=== PATIENT | male | born 1945 | race Caucasian/White ===

== ENCOUNTER 2018-08-07 23:16 | Observation (INO) | payer MEDICARE ==
[~2018-08-07] VITALS: Ht 177.8 cm; Wt 74.7 kg
[~2018-08-07 23:16] MED LIST: ASPI81CH PO; Accuneb1.25 MG/3 INH; Dorzolamide-Tim10 ML BOTHEYES; Ferrous Sulfat325 MG PO; GABA400 PO; LEVSOD75 PO; LIDOCAINE1 EACH TOP; Mobic15 MG PO; Mucinex600 MG PO; NITR.4SL SL; Omeprazole20 M1 PO; THERA-D2000 UNIT PO; Travatan Z5 ML BOTHEYES
[2018-08-08 00:04] LABS: BASOPHILS ABSOLUTE AUTO 0.03 K/mm3 (0.00-0.23); BASOPHILS PERCENT AUTO 0 % (0-2); EOSINOPHILS ABSOLUTE AUTO 0.38 K/mm3 (0.00-0.68); EOSINOPHILS PERCENT AUTO 4 % (0-6); Hematocrit 44.5 % (37.0-53.0); Hemoglobin 14.3 g/dL (13.5-17.5); IMMATURE GRAN ABSOLUTE AUTO 0.02 K/mm3 (0.00-0.10); IMMATURE GRAN PERCENT AUTO 0 % (0-1); LYMPHOCYTES ABSOLUTE AUTO 0.79 K/mm3 (0.84-5.20); LYMPHOCYTES PERCENT AUTO 9 % (21-46); MONOCYTES ABSOLUTE AUTO 0.55 K/mm3 (0.16-1.47); MONOCYTES PERCENT AUTO 6 % (4-13); Mean Corpuscular HGB 29.5 pg (26.0-34.0); Mean Corpuscular HGB Conc 32.1 g/dL (31.5-36.5); Mean Corpuscular Volume 92 fL (80-100); Mean Platelet Volume 10.2 fL (9.1-12.4); NEUTROPHILS ABSOLUTE AUTO 6.94 K/mm3 (1.96-9.15); NEUTROPHILS PERCENT AUTO 80 % (41-73); Platelet Count 209 K/mm3 (150-400); RDW Coefficient Variation 14.4 % (11.7-14.2); RDW Standard Deviation 49.4 fL (35.1-46.3); Red Blood Cell Count 4.84 M/mm3 (4.30-5.90); White Blood Cell Count 8.71 K/mm3 (4.00-11.30)
[2018-08-08 00:05] LABS: Base Excess Venous -0.7 mmol/L; Bicarbonate Venous 23.3 mmol/L (24.0-30.0); PO2 Venous 62.5 mmHg (38-42); pH Blood Venous 7.34 (7.34-7.37)
[2018-08-08 00:05] LABS: Calcium, Ionized (POC) 1.08 mmol/L (1.10-1.46); Chloride (POC) 103 mmol/L (98-108); Creatinine (POC) 0.9 mg/dL (0.8-1.3); Glucose (ISTAT POC) 118 mg/dL (70-99); Hemoglobin (POC) 15.3 g/dL (13.5-17.5); Potassium (POC) 3.5 mmol/L (3.5-5.5); Sodium (POC) 141 mmol/L (135-148); Total CO2 (POC) 24 mmol/L (21-32)
[2018-08-08 00:25] LABS: Alanine Aminotransfer (ALT/SGP 20 U/L (12-78); Albumin, Blood 3.4 g/dL (3.4-5.0); Albumin/Globulin Ratio 0.8 (0.8-1.8); Alk Phos 94 U/L (50-136); Anion Gap 8 mmol/L (6-16); Aspartate Aminotrans (AST/SGOT 19 U/L (12-37); Bilirubin, Total 0.9 mg/dL (0.1-1.0); Blood Urea Nitrogen 16 mg/dL (8-24); Bun/Creatinine Ratio 16.8 (12.0-20.0); CO2, Blood 26 mmol/L (21-32); Calcium, Blood 7.9 mg/dL (8.5-10.1); Chloride, Blood 107 mmol/L (98-108); Creatinine, Blood 0.95 mg/dL (0.60-1.20); Glomerular Filtration Rate >60 (60-); Glucose, Blood 113 mg/dL (70-99); Potassium, Blood 3.6 mmol/L (3.5-5.5); Sodium, Blood 141 mmol/L (136-145); Total Protein, Blood 7.4 g/dL (6.4-8.2); Troponin I <0.015 ng/mL (0.000-0.040)
[2018-08-08] MEDS ORDERED: SENN187 PO (01:23)
[2018-08-08] MEDS ORDERED: TRAM50 PO (01:24)
== END 2018-08-08 15:12 | disposition home or self-care (01) ==
LOC: ER 23:16 → SURS 23:17 → MEDS 08-08 02:06
PROVIDERS: Emergency Medicine
DX: T17.900A Unspecified foreign body in respiratory tract, part unspecified causing asphyxiation, initial encounter (principal); K21.9 Gastro-esophageal reflux disease without esophagitis; J45.909 Unspecified asthma, uncomplicated; E03.9 Hypothyroidism, unspecified; Z88.8 Allergy status to other drugs, medicaments and biological substances; Z88.5 Allergy status to narcotic agent; Z91.041 Radiographic dye allergy status; Z79.899 Other long term (current) drug therapy; Z87.891 Personal history of nicotine dependence
CPT/HCPCS: 71046; 80047; 80053; 82803; 84484; 85014; 85025; 90686; 92610; 93005; 93010; 94640; 94644; 94760; 96374; 99285-25; G8996; G8997; G8998; J1650; J2930

== ENCOUNTER 2019-06-02 05:04 | Inpatient (IN) | payer OTHER, MEDICARE ==
[~2019-06-02] VITALS: Ht 177.8 cm; Wt 74.4 kg
[~2019-06-02 05:04] MED LIST changes: +ONDA4ODT MM; +Protonix40 MG PO; +SENN187 PO; +TRAM50 PO
[2019-06-02 05:41] LABS: BASOPHILS ABSOLUTE AUTO 0.01 K/mm3 (0.00-0.23); BASOPHILS PERCENT AUTO 0 % (0-2); EOSINOPHILS PERCENT AUTO 0 % (0-6); Hematocrit 35.1 % (37.0-53.0); IMMATURE GRAN ABSOLUTE AUTO 0.08 K/mm3 (0.00-0.10); IMMATURE GRAN PERCENT AUTO 1 % (0-1); LYMPHOCYTES PERCENT AUTO 3 % (21-46); MONOCYTES ABSOLUTE AUTO 0.59 K/mm3 (0.16-1.47); MONOCYTES PERCENT AUTO 4 % (4-13); Mean Corpuscular HGB 28.2 pg (26.0-34.0); Mean Corpuscular HGB Conc 31.3 g/dL (31.5-36.5); Mean Corpuscular Volume 90 fL (80-100); Mean Platelet Volume 10.3 fL (9.1-12.4); NEUTROPHILS ABSOLUTE AUTO 13.86 K/mm3 (1.96-9.15); NEUTROPHILS PERCENT AUTO 93 % (41-73); Platelet Count 224 K/mm3 (150-400); RDW Coefficient Variation 15.8 % (11.7-14.2); RDW Standard Deviation 51.6 fL (35.1-46.3); White Blood Cell Count 14.94 K/mm3 (4.00-11.30)
[2019-06-02 05:55] LABS: Prothrombin Time Results 10.6 Sec (9.7-11.5)
[2019-06-02 06:01] LABS: Alanine Aminotransfer (ALT/SGP 21 U/L (12-78); Albumin, Blood 3.4 g/dL (3.4-5.0); Albumin/Globulin Ratio 0.9 (0.8-1.8); Alk Phos 88 U/L (50-136); Anion Gap 7 mmol/L (6-16); Aspartate Aminotrans (AST/SGOT 13 U/L (12-37); Bilirubin, Total 1.1 mg/dL (0.1-1.0); Blood Urea Nitrogen 43 mg/dL (8-24); Bun/Creatinine Ratio 51.6 (12.0-20.0); CO2, Blood 27 mmol/L (21-32); Calcium, Blood 8.3 mg/dL (8.5-10.1); Chloride, Blood 105 mmol/L (98-108); Creatinine, Blood 0.83 mg/dL (0.60-1.20); Globulin, Blood 3.6 g/dL (2.2-4.0); Glomerular Filtration Rate >60 (60-); Glucose, Blood 131 mg/dL (70-99); Potassium, Blood 4.2 mmol/L (3.5-5.5); Sodium, Blood 139 mmol/L (136-145); Troponin I <0.015 ng/mL (0.000-0.040)
--- NOTE | 2019-06-02 09:10 | NUR ---
PT ARRIVED TO ROOM 341 FROM ER VIA GURNEY. HE WAS ABLE TO STAND AND TRANSFER TO BED WITH SBA. PT ALSO UP TO BR WITH SBA. ORIENTED TO ROOM, PHONES AND CALL SYSTEM. DENIES PAIN/DISCOMFORT AT THIS TIME. WILL CONTINUE TO MONITOR
[2019-06-02 11:15] LABS: Hemoglobin 9.9 g/dL (13.5-17.5)
[2019-06-02 11:42] LABS: Percent Saturation 43.4 % (20.0-50.0)
--- NOTE | 2019-06-02 13:24 | NUR ---
06/02/19 1324 Mylene Juarez History, Chart, Medications and Allergies reviewed before start of procedure. 3-LEAD EKG REVIEWED WITH PHYSICIAN PRIOR TO START OF PROCEDURE. MONITOR INTACT WITH CONTINUOUS PULSE OXIMETRY AND INTERMITTENT BP. O2 VIA N/C INTACT THROUGHOUT SEDATION/PROCEDURE. PATIENT DETERMINED TO BE ASA APPROPRIATE FOR PROPOFOL SEDATION PRIOR TO START OF PROCEDURE BY DR. SOLER.
[2019-06-02 14:51] LABS: Source, Urine Catheter
[2019-06-02 14:54] LABS: Appearance, Urine Clear (Clear); Bilirubin, Urine Neg (Neg); Blood, Urine 1+ (Neg); Color, Urine Yellow (P-Yellow); Glucose Qualitative, Urine Neg (Neg); Ketones, Urine 1+ (Neg); Leukocyte Esterase, Urine Neg (Neg); Nitrite, Urine Neg (Neg); Protein, Urine Neg (Neg); Urobilinogen, Urine NORM (Normal); pH, Urine 6.5 (5.0-8.0)
[2019-06-02 15:06] LABS: Red Blood Cells, Urine 0-2 /hpf (0-2); White Blood Cells, Urine 0-2 /hpf (0-5)
[2019-06-02 15:07] LABS: Bacteria Rare /hpf; Squamous Epithelial Cells Few /hpf (Few)
--- NOTE | 2019-06-02 15:22 | NUR ---
TRANSFER TO ICU Pt was a rapid response while in endoscopy due to low SpO2 after suspected aspiration. Pt arrived to ICU 5 at 1345 from endoscopy room. Bedside report received from endo RN, Mylene. Telephone report received from med floor RN, Annamaria. Pt arrived to ICU 5 intubated, 7.5 cm ETT, 24 cm at gum. Placed on ventilator AC 14, vT 450, PEEP 5.0, FiO2 60%. SpO2 98-100%. Dark brown sputum suctioned from ETT. Pt placed on propofol 40 mcg/kg/min. Responsive to verbal stiumulus. Dr Oh, hospitalist of this patient, updated by broker in charge Lymy. Laborer [employer], Dr Lord, consulted. Attempted placement of OG tube. Unsuccessful due to resistance and coiling of tube. Dr Rocha in to see pt. Updated that unable to place OG tube. Provider attempted to place tube once via oral route and once via left nare. Unsuccessful. Delgadillo catheter placed for strict measurement of fluid intake and output. Urine sample sent. Dr Oh in to see pt. Plan of care discussed. Awaiting additional orders from Dr Lord. Pt did not have any family waiting. There is a caregiver/friend listed on face sheet. Plan to update.
--- NOTE | 2019-06-02 15:30 | NUR ---
DR ESPINAL IN TO SEE PT Plan of care discussed. Inquired about sending sputum sample. Provider stated this was not necessary. Discussed antibiotics. Discussed sedation, New orders provided.
--- NOTE | 2019-06-02 16:30 | NUR ---
PT'S FRIEND/CAREGIVER UPDATED This RN placed call to Geovani Irizarry [phone], to notify that pt is in ICU and that he is on a ventilator. This person is the only contact listed in chart. Geovani states that he lives with Jose C and they are each other's support system. This RN answered all questions provided by Geovani.
[2019-06-02 17:13] LABS: Hematocrit 31.3 % (37.0-53.0); Hemoglobin 9.7 g/dL (13.5-17.5)
--- NOTE | 2019-06-02 19:25 | NUR ---
SUMMARY Pt remains sedated with propofol currently at 45 mcg/kg/min. Responsive to painful stimulus. Restrained with bilateral soft wrist restraints to prevent self-extubation. ETT remains 24 cm at [facility]. Ventilator settings AC 14 vT 450 PEEP 5.0 FiO2 35%. SpO2 99-100%. Earlier, pt was double stacking breaths but this resolved after administration of IV fentanyl. Pt remains without OG tube, Dr Lord aware. Pt has not had emesis this shift. Incontinent void of bowel. Bedside report given to Mahi ALANIZ. Pt has not had any visitor since arrival to unit.
--- NOTE | 2019-06-02 21:38 | NUR ---
CARE ASSUMED REPORT RECEIVED, CARE ASSUMED AT 1900 FROM CORBIN JAY. PT INTUBATED AND SEDATED. WITHDRAWS TO PAINFUL STIMULI. DURING ORAL CARE AND REPOSITIONING, PT BEGAN GAGGING/COUGHING REPEATEDLY AND REACHING TOWARDS TUBE. EXTREMETIES EXTREMELY WEAK. BILAT WRIST RESTAINTS IN PLACE. UNABLE TO CALM PATIENT WITH VERBAL REDIRECTION. PROPOFOL INCREASED. BLOOD PRESSURE SENSITIVE TO PROPOFOL TITRATION. OTHERWISE, VITALS STABLE. RIGHT AC IV LEAKING AND POSITIONAL, DOES NOT IMPROVE WITH REPOSITIONING. NEW IV'S STARTED BY VENITA RAMIREZ RN. SEE SHIFT ASSESSMENT/VITALS FLOWSHEET.
--- NOTE | 2019-06-03 04:51 | NUR ---
SUMMARY VENT SETTINGS UNCHANGED. PT HYPOTENSIVE. H&H STABLE. ATTEMPTED TO TITRATE DOWN PROPOFOL TO IMPROVE BLOOD PRESSURE WITH NO SUCCESS. PER DR. CHAMORRO, BOLUS GIVEN. NO IMPROVEMENT AFTER BOLUS SO PHENYLEPHRINE STARTED. ALSO RECEIVED OK BY DR. DOCKERY TO HAVE CENTRAL LINE PLACED FOR CONTINUED NEED OF PRESSOR USE. DR. MARTÍNEZ TO BEDSIDE TO INSERT CENTRAL LINE. SEE FLOWSHEET FOR TITRATIONS. SEE ASSESSMENTS. SEE VITALS FLOWSHEET.
[2019-06-03 06:38] LABS: BASOPHILS ABSOLUTE AUTO 0.06 K/mm3 (0.00-0.23); BASOPHILS PERCENT AUTO 0 % (0-2); EOSINOPHILS ABSOLUTE AUTO 0.45 K/mm3 (0.00-0.68); EOSINOPHILS PERCENT AUTO 3 % (0-6); Hematocrit 23.6 % (37.0-53.0); Hemoglobin 7.5 g/dL (13.5-17.5); IMMATURE GRAN ABSOLUTE AUTO 0.07 K/mm3 (0.00-0.10); IMMATURE GRAN PERCENT AUTO 0 % (0-1); LYMPHOCYTES ABSOLUTE AUTO 1.04 K/mm3 (0.84-5.20); LYMPHOCYTES PERCENT AUTO 6 % (21-46); MONOCYTES ABSOLUTE AUTO 1.14 K/mm3 (0.16-1.47); MONOCYTES PERCENT AUTO 7 % (4-13); Mean Corpuscular HGB 28.1 pg (26.0-34.0); Mean Corpuscular HGB Conc 31.8 g/dL (31.5-36.5); Mean Corpuscular Volume 88 fL (80-100); Mean Platelet Volume 10.9 fL (9.1-12.4); NEUTROPHILS ABSOLUTE AUTO 14.01 K/mm3 (1.96-9.15); NEUTROPHILS PERCENT AUTO 84 % (41-73); Platelet Count 197 K/mm3 (150-400); RDW Standard Deviation 51.7 fL (35.1-46.3); Red Blood Cell Count 2.67 M/mm3 (4.30-5.90); White Blood Cell Count 16.77 K/mm3 (4.00-11.30)
[2019-06-03 06:51] LABS: Anion Gap 7 mmol/L (6-16); Blood Urea Nitrogen 33 mg/dL (8-24); Bun/Creatinine Ratio 38.2 (12.0-20.0); CO2, Blood 25 mmol/L (21-32); Calcium, Blood 7.4 mg/dL (8.5-10.1); Chloride, Blood 112 mmol/L (98-108); Creatinine, Blood 0.86 mg/dL (0.60-1.20); Glomerular Filtration Rate >60 (60-); Glucose, Blood 94 mg/dL (70-99); Potassium, Blood 3.5 mmol/L (3.5-5.5); Sodium, Blood 144 mmol/L (136-145)
--- NOTE | 2019-06-03 07:02 | NUR ---
REPORT TO CORBIN ALICEA TO ASSUME CARE
--- NOTE | 2019-06-03 07:59 | NUR ---
HGB: HGB NOTED TO BE 7.5 THIS MORNING FROM 9.[address] HAYWARD NOTIFIED AND NO NEW ORDERS AT THIS TIME.
--- NOTE | 2019-06-03 09:16 | NUR ---
PATIENT PERMISSION PATIENT UNABLE TO GIVE PERMISSION FOR CARE DUE TO INTUBATION AND SEDATION. NURSE IN CARE AT BEDSIDE.
--- NOTE | 2019-06-03 11:05 | NUR ---
CALLED DR. SOLER REGARDING PT'S HEMOGLOBIN FROM 9 TO 7.5. ORDERS TO TRANSFUSE PT WITH I 1UNIT OF PRBC.
[2019-06-03 12:34] LABS: Hematocrit 24.4 % (37.0-53.0); Hemoglobin 7.7 g/dL (13.5-17.5)
--- NOTE | 2019-06-03 15:00 | NUR ---
EGD IN ROOM: TEAM ARIVED AND SETS UP ROOM. PT IS SEDATED WITH PROPOFOL INFUSION AND 50MCG OF FENTANYL IV. TIME OUT WAS OBSERVED AND VERAFIED CORRECT PATIENT AND PROCEDURE. SCOPE DID NOT APPEAR TO SHOW ANY INTERNAL BLEEDING. PT SATS STARTED TO DECREASE T/O THE PROCEDURE SO O2 ON VENT WAS TURNED UP TO 100% UNTIL COMPLETE.
--- NOTE | 2019-06-03 15:06 | NUR ---
06/03/19 1506 Chemo Meléndez History, Chart, Medications and Allergies reviewed before start of procedure.MONITOR INTACT WITH CONTINUOUS PULSE OXIMETRY AND INTERMITTENT BP.3-LEAD EKG REVIEWED WITH PHYSICIAN PRIOR TO START OF PROCEDURE.O2 VIA N/C INTACT THROUGHOUT SEDATION/PROCEDURE. Patient VENTILATED WITH PROPOFOL GTT.
--- NOTE | 2019-06-03 16:00 | NUR ---
SEDATION VACATION: PROPOFOL WAS TURNED OFF AND ASSESSED MENTATION. PT FOLLOWED COMMANDS, BUT WAS NOTED TO HAVE PAINFUL GRIMIS.
--- NOTE | 2019-06-03 19:09 | NUR ---
SHIFT SUMMARY: ATTEMPTED A COUPLE OF TIMES TO TURN THE NEOSYNEPHRIN OFF AND SBP WOULD DROP DOWN INTO THE 70 OR 80'S, T/O THE DAY IT HAS BEEN DECREASED TO 10. REPORT GIVEN TO ABRAHAM RN. SEE PREVIOUS NOTES REGUARDING EGD AND SEDATION VACATION.
--- NOTE | 2019-06-03 21:06 | NUR ---
CARE ASSUMED REPORT RECEIVED, CARE ASSUMED AT 1900 FROM CORBIN ALICEA. PT CONTINUES TO BE INTUBATED, SEDATED AND RESTRAINED. SECOND UNIT OF BLOOD COMPLETED. PHENYLEPHRINE TITRATED OFF. VITALS STABLE. SEE ASSESSMENTS/FLOWSHEETS FOR SPECIFICS.
[2019-06-04 03:31] LABS: BASOPHILS ABSOLUTE AUTO 0.04 K/mm3 (0.00-0.23); BASOPHILS PERCENT AUTO 0 % (0-2); EOSINOPHILS ABSOLUTE AUTO 0.81 K/mm3 (0.00-0.68); EOSINOPHILS PERCENT AUTO 9 % (0-6); Hemoglobin 10.3 g/dL (13.5-17.5); IMMATURE GRAN ABSOLUTE AUTO 0.04 K/mm3 (0.00-0.10); IMMATURE GRAN PERCENT AUTO 0 % (0-1); LYMPHOCYTES PERCENT AUTO 6 % (21-46); MONOCYTES ABSOLUTE AUTO 0.68 K/mm3 (0.16-1.47); MONOCYTES PERCENT AUTO 7 % (4-13); Mean Corpuscular HGB Conc 33.2 g/dL (31.5-36.5); Mean Corpuscular Volume 87 fL (80-100); Mean Platelet Volume 10.3 fL (9.1-12.4); NEUTROPHILS ABSOLUTE AUTO 7.26 K/mm3 (1.96-9.15); NEUTROPHILS PERCENT AUTO 77 % (41-73); Platelet Count 151 K/mm3 (150-400); RDW Coefficient Variation 15.7 % (11.7-14.2); RDW Standard Deviation 49.5 fL (35.1-46.3); Red Blood Cell Count 3.55 M/mm3 (4.30-5.90); White Blood Cell Count 9.43 K/mm3 (4.00-11.30)
[2019-06-04 03:47] LABS: Anion Gap 8 mmol/L (6-16); Blood Urea Nitrogen 21 mg/dL (8-24); Bun/Creatinine Ratio 24.8 (12.0-20.0); CO2, Blood 23 mmol/L (21-32); Calcium, Blood 7.5 mg/dL (8.5-10.1); Chloride, Blood 113 mmol/L (98-108); Creatinine, Blood 0.85 mg/dL (0.60-1.20); Glomerular Filtration Rate >60 (60-); Glucose, Blood 85 mg/dL (70-99); Magnesium, Blood 1.8 mg/dL (1.6-2.4); Phosphorus, Blood 1.7 mg/dL (2.5-4.9); Potassium, Blood 3.4 mmol/L (3.5-5.5); Sodium, Blood 144 mmol/L (136-145)
--- NOTE | 2019-06-04 05:56 | NUR ---
SUMMARY VENT SETTINGS UNCHANGED UNTIL WEAN AND SEDATION VACATION THIS MORNING. SINCE THEN, PT ON PRESSURE SUPPORT AND TOLERATING WITHOUT INCREASED WORK OF BREATHING OR OXYGEN DESATURATION. PT FOLLOWING DIRECTIONS, OPENING EYES SPONTANEOUSLY. PT COMMUNICATING BY POINTING AND ANSWERING YES/NO QUESTIONS. PT REPORTS BEING IN PAIN BUT REPEATEDLY NODS HEAD "NO" WHEN OFFERED PAIN MEDICATIONS. PT REPOSITIONED FOR COMFORT. PT UPDATED ON EVENTS SINCE ADMISSION AND PROVIDED WITH EDUCATION. PT CALM, RESTING QUIETLY ON VENTILATOR AT THIS TIME. VITALS STABLE, PHENYLEPHRINE HAS BEEN OFF MAJORITY OF THE NIGHT. SEE FLOWSHEETS. PT HAS HAD SEVERAL BLACK TARRY STOOLS THROUGHOUT NIGHT. RIGHT ARM NOTED TO BE PROGRESSIVELY MORE SWOLLEN, RED AND WARM. VILLEGAS CONTINUES TO DRAIN ADEQUATE URINARY OUTPUT. SEE ASSESSMENTS.
--- NOTE | 2019-06-04 08:00 | NUR ---
ASSUMED CARE. PT A&O. PT IS INTUBATED ON SPONTANEOUS CPAP 5, 0 PEEP. PT IN NSR WITH HR IN THE 70S. LUNG SOUNDS CLEAR THROUGHOUT. BOWEL TONES HYPOACTIVE. VILLEGAS TEMP IN PLACE DRAINING CLEAR YELLOW URINE. PT HAS LFA AND LAC 20G IVS. ALSO HAS R IJ THAT IS CURRENTLY INFUSING. NO ACUTE CHANGES AT THIS TIME. WILL CONTINUE TO MONTIOR.
--- NOTE | 2019-06-04 08:45 | NUR ---
DR. HAYWARD HERE-ASSESSED PT. PT AWAKE, ALERT, COOPERATIVE, NO DISTRESS. EXTUBATED TO NASAL CANNULA WITHOUT PROBLEMS.
--- NOTE | 2019-06-04 10:00 | NUR ---
O2 SAT HEADBAND REMOVED. TWO REDDENED AREAS ON FOREHEAD.
--- NOTE | 2019-06-04 12:58 | NUR ---
PT RESTING COMFORTABLY. A&O. HAS COMPLAINED OF PAIN 7/10 BUT IS REFUSING PAIN MEDS. PT WAS EXTUBATED TO 3L NC, BUT IS CURRENTLY SATTING >90% ON RA. PT IS IN NSR WITH HR 90S AND SBP IN THE 120S. LUNG SOUNDS ARE CLEAR THROUGHOUT AND PT HAS A MILD PRODUCTIVE COUGH. BOWEL TONES ARE NORMOACTIVE AND PT HAS HAD 2 SMALL LOOSE BLACK STOOLS. VILLEGAS HAS BEEN REMOVED AND PT HAS BEEN VOIDING INTO URINAL. R ARM IS SLIGHTLY SWOLLEN. EXTREMITIES ARE COOL TO THE TOUCH. PT DOES HAVE HX OF RAYNAUDS. ABLE TO OBTAIN SATS ON EXTREMITIES. WILL CONTINUE TO MONITOR
--- NOTE | 2019-06-04 16:33 | NUR ---
SPOKE WITH DR. HAYWARD AND DR. BUENROSTRO. BOTH AGREED PT CAN BE TRANSFERED TO MEDICAL FLOOR.
--- NOTE | 2019-06-04 17:15 | NUR ---
SUMMARY: A & O TO PERSON, PLACE, SITUATION. PT MAIN COMPLAINT HAS BEEN HIP PAIN BUT IS REFUSING PAIN MEDS. PT WAS EXTUBATED TO 3L NC AND THEN NC REMOVED TO RA. SATTING >90% NSR WITH HR IN THE 80S AND SBP IN THE 140S. PT HAS BEEN UP TO COMMODE SEVERAL TIMES TODAY. HAVING SMALL AMOUNTS OF LOOSE BLACK STOOL. VILLEGAS D/C'D TODAY AND PT HAS BEEN VOIDING INTO URINAL. PT HAS IV IN L WRIST. RIJ D/C'D TODAY.
--- NOTE | 2019-06-04 18:00 | NUR ---
PT TRANSFERRED FROM ICU VIA W/C AND WAS ASSISTED X 1 TO THE BED. ALL OF HIS PERSONAL BELONGINGS WERE PLACED IN THE CLOSET ALONG WITH SOME ITEMS IN THE LOCK BOX IN THE CLOSET. PT IS A/O X 4 AND PLEASANT AND COOPERATIVE WITH HIS CARE. HE WAS ORIENTED TO HIS ROOM, CALL LIGHT AND NURSING STAFF. PT IS RESTING IN BED, STABLE AND COMFORTABLE ON HIS PHONE WITH HIS CALL LIGHT IN REACH.
--- NOTE | 2019-06-04 18:11 | NUR ---
TRANSFER: CALLED REPORT TO [facility]. PT TRANSPORTED TO [facility] BY ANTON PRADO INFORMATION SECURITY ANALYST AND VERONIQUE ALANIZ. PT HAD NO COMPLAINTS.
[2019-06-05 04:30] LABS: Hematocrit 32.6 % (37.0-53.0); Hemoglobin 10.8 g/dL (13.5-17.5); Mean Corpuscular HGB 28.6 pg (26.0-34.0); Mean Corpuscular HGB Conc 33.1 g/dL (31.5-36.5); Mean Corpuscular Volume 87 fL (80-100); Mean Platelet Volume 10.1 fL (9.1-12.4); Platelet Count 181 K/mm3 (150-400); RDW Coefficient Variation 15.7 % (11.7-14.2); RDW Standard Deviation 48.9 fL (35.1-46.3); Red Blood Cell Count 3.77 M/mm3 (4.30-5.90); White Blood Cell Count 8.78 K/mm3 (4.00-11.30)
[2019-06-05 04:45] LABS: Albumin, Blood 2.8 g/dL (3.4-5.0); Anion Gap 10 mmol/L (6-16); Blood Urea Nitrogen 15 mg/dL (8-24); Bun/Creatinine Ratio 15.9 (12.0-20.0); CO2, Blood 22 mmol/L (21-32); Calcium, Blood 7.9 mg/dL (8.5-10.1); Chloride, Blood 111 mmol/L (98-108); Creatinine, Blood 0.94 mg/dL (0.60-1.20); Glomerular Filtration Rate >60 (60-); Glucose, Blood 76 mg/dL (70-99); Phosphorus, Blood 2.8 mg/dL (2.5-4.9); Potassium, Blood 3.4 mmol/L (3.5-5.5); Sodium, Blood 143 mmol/L (136-145)
--- NOTE | 2019-06-05 04:51 | NUR ---
HYDRAULIC PLUMBER HELPER SUMMARY PATIENT SLEPT OFF AND ON OVERNIGHT. WAKING APPROX EVERY 1-1.5 HOURS TO GET OOB AND VOID. VOIDING CLEAR YELLOW URINE IN 100-150 INCREMENTS. STATES BASELINE. COMPLAINTS OF CHRONIC PAIN LEFT SHOULDER AND HIP. INITIALLY STATED APAP WAS WHAT HE TOOK AT HOME, THEN WHEN ORDER FOR SUPPOSITORY CAME IN, HE REFUSED MEDICATION. REPOSITIONED PATIENT OFTEN PT WOULD ALLOW (USUALLY AFTER EACH VOID), OFFERED KPAD FOR COMFORT, BUT PATIENT DIDN'T WANT TO TRY IT. PATIENT VERY WHEEZY AND CONGESTED SOUNDING. LUNG SOUNDS COARSE BILAT. RIGHT ARM REMAINS SWOLLEN AND EDEMATOUS. ESPECIALLY HAND ALTHOUGH LEFT ARM DOES APPEAR A BIT SWOLLEN ALSO.
--- NOTE | 2019-06-05 18:25 | NUR ---
SHIFT SUMMARY PATIENT A&0X4, VOIDS IN URINAL, CAN WALK TO BATHROOM WITH FWW AND 1 ASSIST. 1 EPISODE OF SMALL BLACK LIQUID STOOL IN TOILET. R ARM SWELLING IMPROVED THROUGH DAY, RESOLVED NOW. SPEECH THERAPY CHANGED DIET/PUT IN NEW ORDERS, PATIENT TOLERATED NEW DIET WELL, NO S/S ASPIRATION NOTED. PT ENJOYS ENSURE DRINKS. NO COFFEE OR SODA GIVEN TO PATIENT (GERD DIET). PATIENT HAS SLURRED HOARSE SPEECH SO HARD TO UNDERSTAND AT TIMES, HE IS ALSO ABLE TO COMMUNICATE THROUGH WRITING THINGS DOWN AND MOTIONING. LUNGS ARE COARSE, PT HAS A STRONG SOMEWHAT PRODUCTIVE COUGH WITH SMALL AMOUNT CLEAR/GRIDER SPUTUM. HE DENIES NAUSEA AND SHORTNESS OF BREATH.
--- NOTE | 2019-06-05 21:34 | NUR ---
PATIENT RESTING IN BED. TOOK MEDS WHOLE WITH WATER. SCHEDULE EYE DROPS. DENIES PAIN, SOB, AND N/V. USING ELECTRONIC DEVICE. REPORTS DOES NOT WANT TV ON. CALL LIGHT IN REACH.
--- NOTE | 2019-06-06 02:22 | NUR ---
PATIENT REPORTS BACK/SHOULDER PAIN. HX FACIAL CANCER. HOSPITALIST DR MARTÍNEZ ORDERED FENTANYL 25-50 MCG Q4 AND LIDOCAINE PATCH X TWO.
--- NOTE | 2019-06-06 04:05 | NUR ---
SHIFT SUMMARY PATIENT HAD DARK STOOL THIS SHIFT. AXOX 3 AND SBA TO BR. REPORTED FEET PAIN AND TYLENOL GIVEN PER EMAR. PATIENT LATER REPORTED BACK AND LEFT SHOULDER/HIP PAIN. HOSPITALIST DR MARTÍNEZ ORDERED IV FENTANYL 25-50 MCG PRN AND TWO LIDOCAINE PATCHES. PATIENT ABLE TO GET BACK TO SLEEP WITH PAIN RELIEF. PIV REMAINS INTACT. IV ABX INFUSED. TAKES MEDICATION WHOLE ONE AT A TIME. VSS/AFEBRILE. DENIES SOB AND N/V. USES URINAL AT BEDSIDE. SLURRED SPEECH WITH HX OF FACIAL CANCER. USES PEN/PAPER TO ALSO COMMUNICATE. CALL LIGHT IN REACH. BED IN LOWEST POSITION. WILL CONTINUE TO MONITOR UNTIL DAY SHIFT NURSE ASSUMES CARE.
[2019-06-06 04:58] LABS: Albumin, Blood 2.7 g/dL (3.4-5.0); Anion Gap 8 mmol/L (6-16); Blood Urea Nitrogen 21 mg/dL (8-24); Bun/Creatinine Ratio 22.6 (12.0-20.0); CO2, Blood 25 mmol/L (21-32); Calcium, Blood 7.7 mg/dL (8.5-10.1); Chloride, Blood 109 mmol/L (98-108); Creatinine, Blood 0.93 mg/dL (0.60-1.20); Glomerular Filtration Rate >60 (60-); Glucose, Blood 132 mg/dL (70-99); Phosphorus, Blood 2.5 mg/dL (2.5-4.9); Potassium, Blood 3.4 mmol/L (3.5-5.5); Sodium, Blood 142 mmol/L (136-145)
[2019-06-06 05:14] LABS: Hematocrit 30.7 % (37.0-53.0); Hemoglobin 10.1 g/dL (13.5-17.5); Mean Corpuscular HGB 28.3 pg (26.0-34.0); Mean Corpuscular HGB Conc 32.9 g/dL (31.5-36.5); Mean Corpuscular Volume 86 fL (80-100); Mean Platelet Volume 9.7 fL (9.1-12.4); Platelet Count 222 K/mm3 (150-400); RDW Coefficient Variation 15.6 % (11.7-14.2); RDW Standard Deviation 48.5 fL (35.1-46.3); Red Blood Cell Count 3.57 M/mm3 (4.30-5.90); White Blood Cell Count 7.57 K/mm3 (4.00-11.30)
--- NOTE | 2019-06-06 08:16 | NUR ---
ASSUMED CARE OF PT- BEDSIDE REPORT COMPLETED WITH NIGHT RN. PER REPORT PT ALERT, ORIENTED 1PA TO THE BATHROOM FOR SAFETY. PT STATED PAIN 4-5/10 STATED IT IS WELL MANAGED AT THIS TIME. PT HAS A Hx OF ORALFARANGEAL SURGERY D/T CANCER. PT HAS SCARS ON THE LEFT ARM STATED RELATED TO THE SURGERY.
[2019-06-06] MEDS ORDERED: PANT40 PO (12:19)
[2019-06-06] MEDS ORDERED: THERA1 EACH PO (12:20)
[2019-06-06] MEDS ORDERED: Thiamine HCl100 MG PO (12:21)
--- NOTE | 2019-06-06 12:47 | NUR ---
DISCHARGE NOTE- PT WAS GIVEN VERBAL AND WRITTEN DISCHARGE INSTRUCTIONS AND ACKNOWLEDGED UNDERSTANDING OF THEM. NO FURTHER QUESTIONS AT THE TIME OF DISCHRGE, IV DC'D PRIOR TO PT DISCHARGE. PT CAREGIVER PRESENT FOR DISCHARGE TEACHING. PT TO BE ESCORTED OUT VIA W/C BY THE PHOTOGRAPH EDITOR.
== END 2019-06-06 12:52 | disposition home health service (06) | DRG 377 ==
LOC: ER 05:04 → MEDS 05:05 → ICUE 05:05 → MEDS 05:05 → ICUE 08:59 → MEDS 09:03 → ICUE 13:50 → MEDS 06-04 18:00 → ENPENDDIS 06-06 10:58 → MEDS 06-06 12:52
PROVIDERS: Emergency Medicine; Internal Medicine Critical Care Medicine; Internal Medicine Gastroenterology; ADMIT Internal Medicine
PROC: 0BH17EZ Insertion of Endotracheal Airway into Trachea, Via Natural or Artificial Opening (ICD-10-PCS; 2019-06-02)
PROC: 5A1945Z Respiratory Ventilation, 24-96 Consecutive Hours (ICD-10-PCS; 2019-06-02)
PROC: 0DJ08ZZ Inspection of Upper Intestinal Tract, Via Natural or Artificial Opening Endoscopic (ICD-10-PCS; principal; 2019-06-02 12:00)
PROC: 0DJ08ZZ Inspection of Upper Intestinal Tract, Via Natural or Artificial Opening Endoscopic (ICD-10-PCS; 2019-06-03)
PROC: 02HV33Z Insertion of Infusion Device into Superior Vena Cava, Percutaneous Approach (ICD-10-PCS; 2019-06-03)
PROC: 3E043XZ Introduction of Vasopressor into Central Vein, Percutaneous Approach (ICD-10-PCS; 2019-06-03)
DX: K25.4 Chronic or unspecified gastric ulcer with hemorrhage (principal); J96.01 Acute respiratory failure with hypoxia; J69.0 Pneumonitis due to inhalation of food and vomit; R57.8 Other shock; D62 Acute posthemorrhagic anemia; Z92.3 Personal history of irradiation; K21.9 Gastro-esophageal reflux disease without esophagitis; M19.90 Unspecified osteoarthritis, unspecified site; I25.10 Atherosclerotic heart disease of native coronary artery without angina pectoris; G62.9 Polyneuropathy, unspecified; Z96.641 Presence of right artificial hip joint; Z79.82 Long term (current) use of aspirin; E87.5 Hyperkalemia; E03.9 Hypothyroidism, unspecified; H40.9 Unspecified glaucoma; H35.30 Unspecified macular degeneration; K44.9 Diaphragmatic hernia without obstruction or gangrene; J44.9 Chronic obstructive pulmonary disease, unspecified; I73.00 Raynaud's syndrome without gangrene; C05.9 Malignant neoplasm of palate, unspecified; I95.9 Hypotension, unspecified; J98.4 Other disorders of lung
CPT/HCPCS: 31500; 31720; 36415; 36430; 36556; 51702; 71045; 80048; 80053; 80069; 81001; 82607; 82728; 82746; 83540; 83550; 83690; 83735; 83880; 84100; 84145; 84484; 85014; 85018; 85025; 85027; 85610; 86850; 86900; 86901; 86923; 87070; 87205; 90686; 92610; 93005; 93010; 94002; 94003; 94640; 94760; 96365; 96366; 96376; 97110; 97112; 97116; 97162; 97166; 97530; 97535; 99285-25; A9270; C1751; C9113; G0008; G0378; J0330; J0696; J1940; J2370; J2704; J2765; J3010; J3411; J7030; J7040; J7060; J7120; P9016

== ENCOUNTER 2019-06-17 11:12 | Emergency (ER) | payer OTHER, MEDICARE ==
[~2019-06-17] VITALS: Ht 167.6 cm; Wt 68.0 kg
[~2019-06-17 11:12] MED LIST changes: +PANT40 PO; +THERA1 EACH PO; +Thiamine HCl100 MG PO
[2019-06-17 12:13] LABS: BASOPHILS ABSOLUTE AUTO 0.07 K/mm3 (0.00-0.23); BASOPHILS PERCENT AUTO 1 % (0-2); EOSINOPHILS ABSOLUTE AUTO 0.23 K/mm3 (0.00-0.68); EOSINOPHILS PERCENT AUTO 3 % (0-6); Hematocrit 35.9 % (37.0-53.0); Hemoglobin 11.3 g/dL (13.5-17.5); IMMATURE GRAN ABSOLUTE AUTO 0.03 K/mm3 (0.00-0.10); IMMATURE GRAN PERCENT AUTO 0 % (0-1); LYMPHOCYTES ABSOLUTE AUTO 0.93 K/mm3 (0.84-5.20); LYMPHOCYTES PERCENT AUTO 12 % (21-46); MONOCYTES ABSOLUTE AUTO 0.85 K/mm3 (0.16-1.47); MONOCYTES PERCENT AUTO 11 % (4-13); Mean Corpuscular HGB 28.7 pg (26.0-34.0); Mean Corpuscular HGB Conc 31.5 g/dL (31.5-36.5); Mean Platelet Volume 10.1 fL (9.1-12.4); NEUTROPHILS ABSOLUTE AUTO 5.64 K/mm3 (1.96-9.15); NEUTROPHILS PERCENT AUTO 73 % (41-73); Platelet Count 400 K/mm3 (150-400); RDW Coefficient Variation 15.9 % (11.7-14.2); RDW Standard Deviation 52.8 fL (35.1-46.3); Red Blood Cell Count 3.94 M/mm3 (4.30-5.90); White Blood Cell Count 7.75 K/mm3 (4.00-11.30)
[2019-06-17 12:15] LABS: Mean Corpuscular Volume 91 fL (80-100)
[2019-06-17 12:24] LABS: Alanine Aminotransfer (ALT/SGP 19 U/L (12-78); Albumin, Blood 3.3 g/dL (3.4-5.0); Albumin/Globulin Ratio 0.8 (0.8-1.8); Alk Phos 78 U/L (50-136); Anion Gap 6 mmol/L (6-16); Aspartate Aminotrans (AST/SGOT 22 U/L (12-37); Bilirubin, Total 0.5 mg/dL (0.1-1.0); Blood Urea Nitrogen 20 mg/dL (8-24); Bun/Creatinine Ratio 20.3 (12.0-20.0); CO2, Blood 29 mmol/L (21-32); Calcium, Blood 8.6 mg/dL (8.5-10.1); Chloride, Blood 108 mmol/L (98-108); Creatinine, Blood 0.99 mg/dL (0.60-1.20); Globulin, Blood 3.9 g/dL (2.2-4.0); Glomerular Filtration Rate >60 (60-); Glucose, Blood 96 mg/dL (70-99); Potassium, Blood 3.4 mmol/L (3.5-5.5); Sodium, Blood 143 mmol/L (136-145); Total Protein, Blood 7.2 g/dL (6.4-8.2)
== END 2019-06-17 17:51 | disposition home or self-care (01) ==
LOC: ER 11:12
PROVIDERS: Emergency Medicine
DX: J44.9 Chronic obstructive pulmonary disease, unspecified (principal); K44.9 Diaphragmatic hernia without obstruction or gangrene; Z85.818 Personal history of malignant neoplasm of other sites of lip, oral cavity, and pharynx; E03.9 Hypothyroidism, unspecified; K21.9 Gastro-esophageal reflux disease without esophagitis; Z88.0 Allergy status to penicillin; Z88.8 Allergy status to other drugs, medicaments and biological substances; Z91.018 Allergy to other foods; Z88.1 Allergy status to other antibiotic agents; Z79.899 Other long term (current) drug therapy
CPT/HCPCS: 36415; 71045; 80053; 83690; 85025; 93005; 93010; 96374; 99285-25; J1170; J7030